=== PATIENT | male | born 1955 | race Caucasian/White ===

== ENCOUNTER 2017-07-25 11:22 | Inpatient (IN) | payer SELFPAY ==
[2017-07-25] VITALS (10 sets, daily range): BP systolic 132–259; BP diastolic 62–151; PULSE 77–106; RESP 15–26; TEMP 98.2–98.6; O2SAT 95–98
[~2017-07-25] VITALS: Ht 195.6 cm; Wt 85.8 kg
--- NOTE | 2017-07-25 11:40 | PD ---
HPI . Left-sided weakness Chief Complaint: Neuro Symptoms/ Deficits Time Seen by Provider: 11:31 Travel History International Travel<30 days: No Contact w/Intl Traveler<30days: No Traveled to known affect area: No History of Present Illness HPI Patient presents with a chief complaint of left-sided weakness. Onset was noted on awakening yesterday. Symptoms have persisted causing him to present us today for evaluation. No modifying factors. He complains of a mild frontal headache. Otherwise, he has no other associated symptoms. Pertinent medical history is hypertension. He has been off of meds for a couple of years. [facility]. [facility] Social History Tobacco Use: No Allergies-Medications (Allergen,Severity, Reaction): Coded Allergies: No Known Allergies (Unverified , 07/25/17) Reported Meds & Prescriptions Reported Meds & Active Scripts Active No Active Prescriptions or Reported Medications Review of Systems Except as stated in HPI: all other systems reviewed are Neg General / Constitutional: No: Fever, Chills Eyes: No: Blurred Vision HENT: Positive: Headaches Cardiovascular: No: Chest Pain or Discomfort Respiratory: No: Shortness of Breath Gastrointestinal: No: Nausea, Vomiting Neurologic: Positive: Weakness, Focal Abnormalities, Headache, No: Syncope, Change in Mentation, Slurred Speech, Paresthesia Physical Exam Narrative GENERAL: Patient is awake and alert and in no acute distress. SKIN: warm/dry. HEAD: Atraumatic. Normocephalic. EYES: Pupils equal and round. No scleral icterus. No injection or drainage. ENT: No nasal bleeding or discharge. Mucous membranes pink and moist. NECK: Trachea midline. Full range of motion. CARDIOVASCULAR: Regular rate and rhythm. Heart sounds are normal. RESPIRATORY: No accessory muscle use. Clear to auscultation. Breath sounds equal bilaterally. GASTROINTESTINAL: Abdomen soft. Nontender. Nondistended. MUSCULOSKELETAL: No obvious deformities. No edema. NEUROLOGICAL: Awake and alert. No obvious cranial nerve deficits. Motor grossly within normal limits. Very subtle left pronator drift. He was also noted to be dragging his left leg a little. Normal speech. PSYCHIATRIC: Appropriate mood and affect; insight and judgment normal. Data Data Last Documented VS Vital Signs Date Time Temp Pulse Resp B/P (MAP) Pulse Ox O2 Delivery O2 Flow Rate FiO2 07/25/17 13:14 85 213/121 07/25/17 11:36 15 98 Nasal Cannula 2.00 07/25/17 11:26 98.6 Orders Orders Electrocardiogram (07/25/17 11:31) Prothrombin Time / Inr (Pt) (07/25/17 11:31) Act Partial Throm Time (Ptt) (07/25/17 11:31) Complete Blood Count With Diff (07/25/17 11:31) Comprehensive Metabolic Panel (07/25/17 11:31) Troponin I (07/25/17 11:31) Ct Brain W/O Iv Contrast(Rout) (07/25/17 11:31) Chest, Single Ap (07/25/17 11:31) Ecg Monitoring (07/25/17 11:31) Iv Access Insert/Monitor (07/25/17 11:31) Oximetry (07/25/17 11:31) Nicardipine Inj (Cardene Inj) (07/25/17 12:45) Consult Neurosurgery (07/25/17 ) (Hub Use Only)Inp Phy Cons/Ref (07/25/17 ) Admit Order (Ed Use Only) (07/25/17 13:28) Labs Laboratory Tests Test 07/25/17 11:30 White Blood Count 6.2 TH/MM3 Red Blood Count 4.68 MIL/MM3 Hemoglobin 16.1 GM/DL Hematocrit 47.4 % Mean Corpuscular Volume 101.2 FL Mean Corpuscular Hemoglobin 34.3 PG Mean Corpuscular Hemoglobin Concent 33.9 % Red Cell Distribution Width 13.2 % Platelet Count 188 TH/MM3 Mean Platelet Volume 8.0 FL Neutrophils (%) (Auto) 71.5 % Lymphocytes (%) (Auto) 18.4 % Monocytes (%) (Auto) 8.7 % Eosinophils (%) (Auto) 1.1 % Basophils (%) (Auto) 0.3 % Neutrophils # (Auto) 4.5 TH/MM3 Lymphocytes # (Auto) 1.1 TH/MM3 Monocytes # (Auto) 0.5 TH/MM3 Eosinophils # (Auto) 0.1 TH/MM3 Basophils # (Auto) 0.0 TH/MM3 CBC Comment DIFF FINAL Differential Comment Prothrombin Time 10.8 SEC Prothromb Time International Ratio 1.0 RATIO Activated Partial Thromboplast Time 27.3 SEC Blood Urea Nitrogen 20 MG/DL Creatinine 2.12 MG/DL Random Glucose 150 MG/DL Total Protein 8.2 GM/DL Albumin 3.5 GM/DL Calcium Level 8.8 MG/DL Alkaline Phosphatase 150 U/L Aspartate Amino Transf (AST/SGOT) 30 U/L Alanine Aminotransferase (ALT/SGPT) 27 U/L Total Bilirubin 0.5 MG/DL Sodium Level 140 MEQ/L Potassium Level 4.3 MEQ/L Chloride Level 105 MEQ/L Carbon Dioxide Level 27.6 MEQ/L Anion Gap 7 MEQ/L Estimat Glomerular Filtration Rate 32 ML/MIN Troponin I 0.10 NG/ML MDM Medical Decision Making Medical Screen Exam Complete: Yes Emergency Medical Condition: Yes Interpretation(s) EKG shows a sinus rhythm. Poor R-wave progression. Minimal ST segment elevation anteriorly. It does not meet STEMI criteria. Differential Diagnosis Differential diagnosis includes but is not limited to TIA, CVA, brain tumor, migraine, anxiety Narrative Course This patient presents with signs and symptoms compatible with stroke. He had the onset of symptoms more than 24 hours ago. Therefore, he does not meet criteria for a stroke alert. CBC & BMP Diagram 07/25/17 11:30 Total Protein 8.2, Albumin 3.5, Calcium Level 8.8, Alkaline Phosphatase 150 H, Aspartate Amino Transf (AST/SGOT) 30, Alanine Aminotransferase (ALT/SGPT) 27, Total Bilirubin 0.5 Last Impressions Chest X-Ray 07/25/17 1131 Signed Impressions: Service Date/Time: , July 25, 2017 11:48 - CONCLUSION: No acute disease. Edi Bo Jr., MD CT head: 1. 1 cm acute intraparenchymal hemorrhage involving the right thalamus and posterior limb of the internal capsule. 2. Chronic lacunar infarctions involving the left thalamus and donnie. Carding has been ordered. The patient's head of bed is elevated. Neurosurgery resulted. The findings have been discussed with the patient. He is aware that he needs to be admitted to the intensive care unit for blood pressure control. Critical Care Narrative Aggregate critical care time was 45 minutes. Time to perform other separately billable procedures was not included in the critical care time. My time did not include minutes spent treating any other patients simultaneously or on activities that did not directly contribute to the patient's treatment. The services I provided to this patient were to treat and/or prevent clinically significant deterioration due to strokelike symptoms, intracerebral hemorrhage I provided critical care services requiring my management, as noted below: Chart data review, documentation time, medication orders and management, vital sign assessments/reviewing monitor data, ordering and reviewing lab tests, ordering and interpreting/reviewing x-rays and diagnostic studies, care of the patient and discussion of the patient with the admitting physicians Physician Communication Physician Communication Dr. Barth, neurosurgery, has been consulted. There is nothing for him to do surgically. Dr. Evans, intensive care, has been consulted. Diagnosis Primary Impression: Hypertensive intracerebral hemorrhage Additional Impression: Uncontrolled hypertension Admitting Information Admitting Physician Requests: Admit Scripts No Active Prescriptions or Reported Meds Condition: Stable Val Duran MD Jul 25, 2017 11:40
[2017-07-25 12:03] LABS: AUTOMATED NEUTROPHIL # 4.5 TH/MM3 (1.8-7.7); BASOPHIL % 0.3 % (0.0-2.0); EOSINOPHIL # 0.1 TH/MM3 (0-0.4); EOSINOPHIL % 1.1 % (0.0-4.0); HEMATOCRIT 47.4 % (39.0-51.0); HEMO FLAGS DIFF FINAL; LYMPH % 18.4 % (9.0-44.0); LYMPHOCYTE # 1.1 TH/MM3 (1.0-4.8); MEAN CELL VOLUME 101.2 FL (80.0-100.0); MEAN CORPUSCULAR HEMOGLOBIN 34.3 PG (27.0-34.0); MEAN CORPUSCULAR HGB CONC 33.9 % (32.0-36.0); MONO % 8.7 % (0.0-8.0); NEUT % 71.5 % (16.0-70.0); PLATELET COUNT 188 TH/MM3 (150-450); RED BLOOD COUNT 4.68 MIL/MM3 (4.50-5.90); RED CELL DISTRIBUTION WIDTH 13.2 % (11.6-17.2); WHITE BLOOD COUNT 6.2 TH/MM3 (4.0-11.0)
[2017-07-25 12:07] LABS: APTT (PATIENT) 27.3 SEC (24.3-30.1); PROTHROMBIN TIME - PATIENT 10.8 SEC (9.8-11.6)
[2017-07-25 12:17] LABS: ALKALINE PHOSPHATASE 150 U/L (45-117); TOTAL BILIRUBIN ADULT 0.5 MG/DL (0.2-1.0)
[2017-07-25 12:19] LABS: ALT (GPT) 27 U/L (12-78); ANION GAP 7 MEQ/L (5-15); AST (GOT) 30 U/L (15-37); BICARBONATE 27.6 MEQ/L (21.0-32.0); BLOOD UREA NITROGEN 20 MG/DL (7-18); CHLORIDE 105 MEQ/L (98-107); GLOMERULAR FILTRATION RATE 32 ML/MIN (>89); POTASSIUM 4.3 MEQ/L (3.5-5.1); SODIUM (NA) 140 MEQ/L (136-145)
--- NOTE | 2017-07-25 12:32 | RADRPT ---
EXAM DATE/TIME: 07/25/2017 11:48 [facility] COMPARISON: No previous studies available for comparison. INDICATIONS : Shortness of breath. MEDICAL HISTORY : Hypertension. SURGICAL HISTORY : None. ENCOUNTER: Initial ACUITY: 1 week PAIN SCORE: 0/10 LOCATION: Bilateral chest FINDINGS: A single view of the chest demonstrates the lungs to be symmetrically aerated without evidence of mas s, infiltrate or effusion. The cardiomediastinal contours are unremarkable. Osseous structures are intact. CONCLUSION: No acute disease. Edi Bo Jr., MD on July 25, 2017 at 12:30 Board Certified Radiologist. This report was verified electronically.
[2017-07-25] MEDS ORDERED: niCARdipine INJ 25 MG in SODIUM CHLOR 0.9% 250 ML INJ 250 ML IV ONE (12:45)
--- NOTE | 2017-07-25 12:55 | RADRPT ---
EXAM DATE/TIME: 07/25/2017 12:35 [facility] COMPARISON: No previous studies available for comparison. INDICATIONS : Elevated blood pressure,headache,left side weakness RADIATION DOSE: 38.55 CTDIvol (mGy) MEDICAL HISTORY : Hypertension. SURGICAL HISTORY : None. ENCOUNTER: Initial ACUITY: 1 week PAIN SCALE: 3/10 LOCATION: cranial TECHNIQUE: Multiple contiguous axial images were obtained of the head. Using automated exposure control and adj ustment of the mA and/or kV according to patient size, radiation dose was kept as low as reasonably a chievable to obtain optimal diagnostic quality images. DICOM format image data is available electro nically for review and comparison. FINDINGS: There is a 1 cm intraparenchymal hemorrhage seen centered in the basal ganglia on the right. This is approaching the thalamus and posterior limb of the internal capsule. No significant mass effect. A sm all chronic lacunar infarction is seen involving the left thalamus. The remaining brain parenchyma sh ows normal attenuation with the exception of a lacunar solid infarction involving the donnie to the lef t of midline. Ventricles are normal in size. Chronic paranasal sinus disease involving the right ethm oid air cells. CONCLUSION: 1. 1 cm acute intraparenchymal hemorrhage involving the right thalamus and posterior limb of the inte rnal capsule. 2. Chronic lacunar infarctions involving the left thalamus and donnie. Edi Bo Jr., MD on July 25, 2017 at 12:51 Board Certified Radiologist. This report was verified electronically.
[2017-07-25] MEDS ORDERED: MISCELLANEOUS NURSING INFORMATION XX SCH (13:30)
[2017-07-25] MEDS ORDERED: CHLORHEXIDINE GLUCONATE 2 % 1 PACK (2 CLOTHS) TOP PRN (13:30)
[2017-07-25] MEDS ORDERED: LACTULOSE SYRUP 20 GM/30 ML CUP PO PRN (13:30)
[2017-07-25] MEDS ORDERED: SENNOSIDES 8.6 MG TAB PO PRN (13:30)
[2017-07-25] MEDS ORDERED: BISACODYL 10 MG SUPP RECTAL PRN (13:30)
[2017-07-25] MEDS ORDERED: MAGNESIUM HYDROXIDE SUSP 30 ML CUP PO PRN (13:30)
--- NOTE | 2017-07-25 13:38 | HHI.HP ---
HPI Service Critical Care Medicine Primary Care Physician No Primary Care Physician Admission Diagnosis hypertension intracerebral bleed Diagnosis: (1) ICH involving R Basal Ganglia and post limb of internal capsule Diagnosis: Principal (2) Hypertensive emergency Diagnosis: Principal (3) Acute kidney failure Diagnosis: Principal (4) Hyperglycemia Diagnosis: Principal (5) Mild troponin elevation Diagnosis: Principal (6) Hypertension Diagnosis: Secondary (7) Noncompliance Diagnosis: Secondary (8) Alcohol dependence Diagnosis: Secondary Chief Complaint: Intracranial hemorrhage Travel History International Travel<30 Days: No Contact w/Intl Traveler <30 Da: No Traveled to Known Affected Are: No History of Present Illness Patient is a 61-year-old male with past medical history significant for hypertension, noncompliance to medication, alcohol abuse who presented to the emergency department with complaints of left-sided weakness. He had symptoms from yesterday along with a frontal headache but decided to come only today as the symptoms persisted. Patient had been prescribed to take lisinopril but he had not been taking medication since last 2 years and does not check his blood pressure at home. No history of stroke in the past. Emergency CT of the head showed acute hemorrhage involving left thalamus and posterior limb of the internal capsule. Patient had no significant weakness other than slight left pronator drift. Neurosurgery Dr. Barth was contacted who recommended medical management and aggressive blood pressure control. Critical care medicine was consulted for admission and management. Patient had a BP of 259/151 on admission and was placed on Cardene infusion for hypertensive emergency I evaluated the patient in the emergency department. He is complaining of moderate left frontal headache. Systolic blood pressure remains in 200s and I have ordered to up titrate the Cardene, also added IV labetalol when necessary for SBP more than 160. We will target a blood pressure less than 140/90 due to acute intracranial hemorrhage. Abnormal labs include a creatinine of 2.12 and a glucose of 150, initial troponin was 0.10. EKG showed probably old septal infarct Review of Systems ROS Limitations: Other (as per HPI) Past Family Social History Allergies: Coded Allergies: No Known Allergies (Unverified , 07/25/17) Past Medical History Hypertension noncompliant to medication Alcohol abuse Tobacco use Past Surgical History No major surgeries Reported Medications Noncompliant with lisinopril Active Ordered Medications Currently on Cardene infusion Family History Mother was hypertensive Social History Drinks 5-6 beers daily and sometimes 12 pack Smokes one pack of cigarettes a day Physical Exam Vital Signs Vital Signs Date Time Temp Pulse Resp B/P (MAP) Pulse Ox O2 Delivery O2 Flow Rate FiO2 07/25/17 13:14 85 213/121 07/25/17 13:08 93 217/124 07/25/17 13:06 86 214/118 07/25/17 13:03 88 213/121 07/25/17 13:02 82 220/128 07/25/17 11:36 98 15 244/138 (173) 98 Nasal Cannula 2.00 07/25/17 11:36 15 98 Nasal Cannula 2.00 07/25/17 11:33 104 16 244/138 (173) 97 07/25/17 11:26 98.6 106 20 259/151 (187) 98 Room Air Physical Exam GENERAL: Patient is awake and alert and lying in the ER gurphuong complains of headache, some distress due to headache SKIN: warm/dry. HEAD: Atraumatic. Normocephalic. EYES: Pupils equal and round. No scleral icterus. No injection or drainage. ENT: No nasal bleeding or discharge. Mucous membranes moist NECK: Trachea midline. CARDIOVASCULAR: Regular rate and rhythm. Heart sounds are normal. Hypertensive on Cardene gtt RESPIRATORY: No accessory muscle use. Clear to auscultation. Breath sounds equal bilaterally. GASTROINTESTINAL: Abdomen soft. Nontender. Nondistended. MUSCULOSKELETAL: No obvious deformities. No edema. NEUROLOGICAL: Awake and alert. No obvious cranial nerve deficits. Motor grossly within normal limits. Subtle left pronator drift. Normal speech. Laboratory Laboratory Tests Test 07/25/17 11:30 White Blood Count 6.2 Red Blood Count 4.68 Hemoglobin 16.1 Hematocrit 47.4 Mean Corpuscular Volume 101.2 Mean Corpuscular Hemoglobin 34.3 Mean Corpuscular Hemoglobin Concent 33.9 Red Cell Distribution Width 13.2 Platelet Count 188 Mean Platelet Volume 8.0 Neutrophils (%) (Auto) 71.5 Lymphocytes (%) (Auto) 18.4 Monocytes (%) (Auto) 8.7 Eosinophils (%) (Auto) 1.1 Basophils (%) (Auto) 0.3 Neutrophils # (Auto) 4.5 Lymphocytes # (Auto) 1.1 Monocytes # (Auto) 0.5 Eosinophils # (Auto) 0.1 Basophils # (Auto) 0.0 CBC Comment DIFF FINAL Differential Comment Prothrombin Time 10.8 Prothromb Time International Ratio 1.0 Activated Partial Thromboplast Time 27.3 Blood Urea Nitrogen 20 Creatinine 2.12 Random Glucose 150 Total Protein 8.2 Albumin 3.5 Calcium Level 8.8 Alkaline Phosphatase 150 Aspartate Amino Transf (AST/SGOT) 30 Alanine Aminotransferase (ALT/SGPT) 27 Total Bilirubin 0.5 Sodium Level 140 Potassium Level 4.3 Chloride Level 105 Carbon Dioxide Level 27.6 Anion Gap 7 Estimat Glomerular Filtration Rate 32 Troponin I 0.10 Result Diagram: 07/25/17 1130 07/25/[address] Brain shows 1 cm hemorrhage involving left thalamus and posterior limb of internal capsule Caprini VTE Risk Assessment Caprini VTE Risk Assessment: Mod/High Risk (score >= 2) VTE Pharm Contraindication: Hemorrhage Caprini Risk Assessment Model Point Value = 1 Point Value = 2 Point Value = 3 Point Value = 5 Age 41-60 Minor surgery BMI > 25 kg/m2 Swollen legs Varicose veins or History of unexplained or recurrent spontaneous Oral contraceptives or hormone replacement Sepsis (< 1 month) Serious lung disease, including pneumonia (< 1 month) Abnormal pulmonary function Acute myocardial infarction Congestive heart failure (< 1 month) History of inflammatory bowel disease Medical patient at bed rest Age 61-74 Arthroscopic surgery Major open surgery (> 45 min) Laparoscopic surgery (> 45 min) Malignancy Confined to bed (> 72 hours) Immobilizing plaster cast Central venous access Age >= 75 History of VTE Family history of VTE Factor V Leiden Prothrombin [id number] Lupus anticoagulant Anticardiolipin antibodies Elevated serum homocysteine Heparin-induced thrombocytopenia Other congenital or acquired thrombophilia Stroke (< 1 month) Elective arthroplasty Hip, pelvis, or leg fracture Acute spinal cord injury (< 1 month) Prophylaxis Regimen Total Risk Factor Score Risk Level Prophylaxis Regimen 0-1 Low Early ambulation 2 Moderate Order ONE of the following: *Sequential Compression Device (SCD) *Heparin 5000 units SQ BID 3-4 Higher Order ONE of the following medications: *Heparin 5000 units SQ TID *Enoxaparin/Lovenox 40 mg SQ daily (WT < 150 kg, CrCl > 30 mL/min) *Enoxaparin/Lovenox 30 mg SQ daily (WT < 150 kg, CrCl > 10-29 mL/min) *Enoxaparin/Lovenox 30 mg SQ BID (WT < 150 kg, CrCl > 30 mL/min) AND/OR *Sequential Compression Device (SCD) 5 or more Highest Order ONE of the following medications: *Heparin 5000 units SQ TID (Preferred with Epidurals) *Enoxaparin/Lovenox 40 mg SQ daily (WT < 150 kg, CrCl > 30 mL/min) *Enoxaparin/Lovenox 30 mg SQ daily (WT < 150 kg, CrCl > 10-29 mL/min) *Enoxaparin/Lovenox 30 mg SQ BID (WT < 150 kg, CrCl > 30 mL/min) AND *Sequential Compression Device (SCD) Assessment and Plan Assessment and Plan NEURO: Acute left thalamic and internal capsule hemorrhage Hypertensive emergency Alcohol dependence - CT of the head shows 1 cm bleed left thalamic and posterior limb of internal capsule hemorrhage - Neurosurgery Dr. Barth consulted, conservative management - Cardene infusion to keep blood pressure less than 140/90 - Watch for Alcohol withdrawal, use Ativan when necessary - Supplement and multivitamin thiamine - F/U Ct head in am, check B12, Folate, TSH - HOB elevation to 45 - PT/OT/Speech RESP: - Nasal cannula oxygen - Tobacco cessation counselling CV: Hypertensive emergency History of hypertension with noncompliance Mild troponin elevation - Normal saline IV fluids, check 2d echo, monitor serial cardiac enzymes - Cardizem infusion to keep blood pressure less than 140/90, use labetalol IV when necessary - Start Norvasc 5 mg daily and metoprolol 25 mg by mouth every 8 hours GI: - Speech and swallow eval, diet per recommendation - Colace for bowel regimen : Acute kidney failure - Monitor renal function closely. Place Orellana catheter if patient agreeable - renal US. Nephrology consult if not improving ID: - Monitor for infection. No indication for antibiotics at this time HEME: - Monitor CBC, CMP, coags as needed ENDO: Hyperglycemia - Check hemoglobin A1c - SSI if needed PROPH: - Bilateral lower extremity SCDs/MACK. Chemical DVT prophylaxis contraindicated due to intracranial hemorrhage - IV Protonix for GI prophylaxis LINES: - Utilize peripheral IVs, central line if needed CC time 35 min Code Status Full code Problem Qualifiers (1) Alcohol dependence: Daniel Evans MD Jul 25, 2017 13:38
[2017-07-25] MEDS ORDERED: ACETAMINOPHEN 325 MG TAB PO PRN (14:45)
--- NOTE | 2017-07-25 14:49 | RADRPT ---
EXAM DATE/TIME: 07/25/2017 13:53 [facility] COMPARISON: No previous studies available for comparison. INDICATIONS : Increased lab values. MEDICAL HISTORY : Hypertension. Alcohol use. Substance use. SURGICAL HISTORY : None. ENCOUNTER: Initial ACUITY: 1 day PAIN SCORE: 12/04 LOCATION: Bilateral flank MEASUREMENTS: RIGHT KIDNEY: 10.3 x 5.3 x 5.6 cm LEFT KIDNEY: 11.1 x 4.2 x 6.6 cm FINDINGS: RIGHT KIDNEY: There is a 1 cm non-shadowing stone involving the lower pole. This is echogenic and with shadowing. T here is a vague area of decreased echogenicity involving the medial mid cortex. No discrete mass is a ppreciated. No hydronephrosis seen. LEFT KIDNEY: There is a 4.1 cm cyst involving the midpole. No hydronephrosis. BLADDER: Within normal limits given the degree of distension. CONCLUSION: 1. 1 cm nonobstructing right renal stone. 2. Vague area of differing echogenicity involving the medial midpole of the right kidney. I do not se e a discrete mass. This area should be followed up. This can be done preferably with an MRI with and without contrast but if the patient's renal status will not tolerate this a short term followup ultra sound can be performed. Edi Bo Jr., MD on July 25, 2017 at 14:44 Board Certified Radiologist. This report was verified electronically.
[2017-07-25] MEDS ORDERED: MULTIVITAMIN INJ 10 ML, THIAMINE INJ 100 MG, FOLIC ACID INJ 1 MG in SODIUM CHLORID 0.9%... IV ONE (16:00)
[2017-07-25] MEDS: ACETAMINOPHEN 325 MG TAB PO PRN ×2 (16:42→21:03)
[2017-07-25] MEDS: METOPROLOL TARTRATE 25 MG TAB PO SCH ×2 (16:42→21:02)
[2017-07-25] MEDS: niCARdipine INJ 25 MG in SODIUM CHLOR 0.9% 250 ML INJ 250 ML IV PRN ×2 (16:57→20:54)
[2017-07-25] MEDS: SODIUM CHLOR 0.9% 1000 ML INJ 1,000 ML IV SCH (18:13)
[2017-07-25] MEDS: DOCUSATE SODIUM 50 MG/SENNA 8.6 MG TAB PO SCH (20:22)
[2017-07-25] MEDS: ZOLPIDEM TARTRATE 10 MG TAB PO PRN (21:02)
--- NOTE | 2017-07-25 22:34 | MB ---
cc: BHARAT PEREZ DATE OF CONSULTATION 07/25/17 REASON FOR CONSULTATION Right thalamic bleed HISTORY OF PRESENT ILLNESS This is a 61-year-old gentleman who had acute onset of left-sided weakness and numbness initially around the arm and also leg yesterday morning. He also is suffering from an upper respiratory infection and related to me that he felt that this could be side effects from his cold and, therefore, did not think he needed medical attention. His symptoms persisted today. Therefore, he decided to come to the emergency room. He was very hypertensive on presentation with blood pressure initially noted to be 159/151. He was started on a Cardene drip to regulate his malignant hypertension and a CT scan of the head obtained reveals a 1 cm right thalamic hemorrhage. There is no intraventricular extension or hydrocephalus. He also has small vessel ischemic changes with coronary infarcts involving the left thalamus and donine. The patient relates that he has a history of hypertension but was unable to get care at the [facility], although he is a and, therefore, has not been taking any medications. He relates that since his admission and regulation of his hypertension his left-sided weakness and numbness is improving. PAST MEDICAL HISTORY Hypertension. MEDICATIONS None ALLERGIES No known drug allergies. 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 He is single. He admits to drinking six beers a day and smoking a pack of cigarettes a day. REVIEW OF SYSTEMS Mild headache. Denies any double vision or blurred vision. Denies any nausea or vomiting, has some mild left arm and leg weakness, mild numbness and incoordination and unsteadiness. Denies any chest pain or shortness of breath. Denies any abdominal pain and no fevers or chills. No recent weight gain or weight loss. No history of easy bleeding or bruising. No incontinence. LABORATORY FINDINGS Sodium 140, potassium 4.3, BUN 20, creatinine 2.12, glucose 150. White blood cell count 6.2, hemoglobin 16.1, platelet count 188, PT 10.8, INR 1.0, PTT 27.3. PHYSICAL EXAMINATION VITAL SIGNS: Temperature 98.6, pulse is 98, respiratory rate 15, blood pressure is 155/86 on Cardene drip. HEAD: Normocephalic, atraumatic NECK: Supple. CHEST: Clear bilaterally HEART: Mild tachycardia, normal S1, S2 ABDOMEN: Soft, nontender. EXTREMITIES: No cyanosis or edema. NEUROLOGIC: He is awake, alert. He is oriented x3. Pupils equal, reactive. Extraocular movements are intact. Face is symmetric. Tongue is midline. Right-sided strength is 5/5. On the left side he has 4/5 strength in upper and lower extremities. Negative Babinski. Appreciates light touch sensation bilaterally in upper and lower extremities. Speech is fluent. IMPRESSION 1. Small right thalamic hypertensive bleed. 2. Unregulated malignant hypertension 3. History of alcohol abuse. PLAN The patient will be monitored closely in the intensive care unit and hypertension regulated with Cardene drip and subsequently switched over to p.o. medications. Sequential compression devices for DVT prophylaxis as chemical DVT prophylaxis contraindicated given the intracranial hemorrhage. His diet and activity status can be increased as tolerated along with physical and occupational therapy involvement. At this point, no neurosurgical intervention is anticipated. MD DOYLE Graff/ /5:33 PM /10:21 PM
[2017-07-25] MEDS: LORazepam 2 MG/ML VIAL IV PUSH PRN (23:27)
[2017-07-26] VITALS (13 sets, daily range): BP systolic 142–156; BP diastolic 70–81; PULSE 77–98; RESP 18–27; TEMP 97.9–98.2; O2SAT 90–95
[2017-07-26] MEDS: niCARdipine INJ 25 MG in SODIUM CHLOR 0.9% 250 ML INJ 250 ML IV PRN ×3 (00:46→04:43)
[2017-07-26 01:40] LABS: CREATINE KINASE 93 U/L (39-308)
[2017-07-26 02:11] LABS: AUTOMATED NEUTROPHIL # 4.5 TH/MM3 (1.8-7.7); BASOPHIL % 0.7 % (0.0-2.0); EOSINOPHIL # 0.2 TH/MM3 (0-0.4); EOSINOPHIL % 2.7 % (0.0-4.0); HEMO FLAGS DIFF FINAL; LYMPH % 15.1 % (9.0-44.0); LYMPHOCYTE # 0.9 TH/MM3 (1.0-4.8); MEAN CELL VOLUME 100.9 FL (80.0-100.0); MEAN CORPUSCULAR HEMOGLOBIN 33.6 PG (27.0-34.0); MEAN CORPUSCULAR HGB CONC 33.3 % (32.0-36.0); MONO % 7.2 % (0.0-8.0); NEUT % 74.3 % (16.0-70.0); PLATELET COUNT 165 TH/MM3 (150-450); RED BLOOD COUNT 4.46 MIL/MM3 (4.50-5.90); RED CELL DISTRIBUTION WIDTH 13.4 % (11.6-17.2); WHITE BLOOD COUNT 6.1 TH/MM3 (4.0-11.0)
[2017-07-26 02:24] LABS: ALKALINE PHOSPHATASE 144 U/L (45-117); ALT (GPT) 25 U/L (12-78); ANION GAP 7 MEQ/L (5-15); AST (GOT) 27 U/L (15-37); BICARBONATE 28.5 MEQ/L (21.0-32.0); BLOOD UREA NITROGEN 17 MG/DL (7-18); CHLORIDE 107 MEQ/L (98-107); CREATINE KINASE 86 U/L (39-308); GLOMERULAR FILTRATION RATE 44 ML/MIN (>89); POTASSIUM 4.1 MEQ/L (3.5-5.1); SODIUM (NA) 142 MEQ/L (136-145); TOTAL BILIRUBIN ADULT 0.5 MG/DL (0.2-1.0)
[2017-07-26] MEDS: BENZONATATE 100 MG CAP PO PRN ×2 (03:53→22:38)
[2017-07-26] MEDS: LORazepam 2 MG/ML VIAL IV PUSH PRN ×3 (03:53→17:30)
[2017-07-26] MEDS: CHLORHEXIDINE GLUCONATE 2 % 1 PACK (2 CLOTHS) TOP SCH (04:50)
--- NOTE | 2017-07-26 06:09 | RADRPT ---
EXAM DATE/TIME: 07/26/2017 05:58 [place] COMPARISON: CT BRAIN W/O CONTRAST, July 25, 2017, 12:35. INDICATIONS : Follow up hemorrhage. RADIATION DOSE: 69.11 CTDIvol (mGy) ; Tabletop CT Head MEDICAL HISTORY : Hypertension. SURGICAL HISTORY : None. ENCOUNTER: Subsequent ACUITY: 1 day PAIN SCALE: 0/10 LOCATION: cranial TECHNIQUE: Multiple contiguous axial images were obtained of the head. Using automated exposure control and adj ustment of the mA and/or kV according to patient size, radiation dose was kept as low as reasonably a chievable to obtain optimal diagnostic quality images. DICOM format image data is available electro nically for review and comparison. FINDINGS: The prior examination demonstrated acute right basal ganglia hemorrhage measuring 14 x 10 mm the surr ounding vasogenic edema. The current examination demonstrates no significant change. Ventricles are n ormal in size. There is no midline shift or herniation. No new blood products are identified. There i s a stable area of low density in the left thalamus. CONCLUSION: Stable head CT with unchanged acute right basal ganglia blood products. Nathan Knowles MD on July 26, 2017 at 6:05 Board Certified Radiologist. This report was verified electronically.
[2017-07-26] MEDS: METOPROLOL TARTRATE 25 MG TAB PO SCH ×3 (06:13→21:11)
[2017-07-26] MEDS: SODIUM CHLOR 0.9% 1000 ML INJ 1,000 ML IV SCH (06:14)
[2017-07-26] MEDS ORDERED: niCARdipine INJ 50 MG in SODIUM CHLOR 0.9% 250 ML INJ 230 ML IV PRN (07:00)
[2017-07-26] MEDS: PANTOPRAZOLE SODIUM 40 MG VIAL IV SCH (08:48)
[2017-07-26] MEDS: DOCUSATE SODIUM 50 MG/SENNA 8.6 MG TAB PO SCH ×2 (08:49→21:00)
[2017-07-26] MEDS: ACETAMINOPHEN 325 MG TAB PO PRN ×2 (08:49→17:30)
[2017-07-26] MEDS ORDERED: amLODIPine BESYLATE 5 MG TAB PO SCH (09:00)
--- NOTE | 2017-07-26 09:08 | HHI.CCPN ---
Subjective Remarks/Hospital Course Patient is a 61-year-old male with past medical history significant for hypertension, noncompliance to medication, alcohol abuse who presented to the emergency department with complaints of left-sided weakness. He had symptoms from yesterday along with a frontal headache but decided to come only today as the symptoms persisted. Patient had been prescribed to take lisinopril but he had not been taking medication since last 2 years and does not check his blood pressure at home. No history of stroke in the past. Emergency CT of the head showed acute hemorrhage involving right thalamus and posterior limb of the internal capsule. Patient had no significant weakness other than slight left pronator drift. Neurosurgery Dr. Barth was contacted who recommended medical management and aggressive blood pressure control. Critical care medicine was consulted for admission and management. Patient had a BP of 259/151 on admission and was placed on Cardene infusion for hypertensive emergency I evaluated the patient in the emergency department. He is complaining of moderate left frontal headache. Systolic blood pressure remains in 200s and I have ordered to up titrate the Cardene, also added IV labetalol when necessary for SBP more than 160. We will target a blood pressure less than 140/90 due to acute intracranial hemorrhage. Abnormal labs include a creatinine of 2.12 and a glucose of 150, initial troponin was 0.10. EKG showed probably old septal infarct SUBJ 07/26: Patient remains on Cardene at [address] of the head stable today. Headache subjectively improved. We'll increase Norvasc to 10 mg and metoprolol 50 every 8 hours. Creatinine today improved to 1.6 Objective Vital Signs Date Time Temp Pulse Resp B/P (MAP) Pulse Ox O2 Delivery O2 Flow Rate FiO2 07/26/17 07:31 79 154/76 07/26/17 07:22 95 Nasal Cannula 2.00 07/26/17 04:00 26 07/25/17 20:00 98.2 Intake and Output 07/26/17 07/26/17 07/26/17 07:59 15:59 23:59 Intake Total 1828 ml Balance 1828 ml Result Diagram: 07/26/17 0147 07/26/17[address] Imaging [address] Brain shows 1 cm hemorrhage involving left thalamus and posterior limb of internal capsule Objective Remarks GENERAL: Patient is awake and alert and ditting up in bed. SKIN: warm/dry. HEAD: Atraumatic. Normocephalic. EYES: Pupils equal and round. No scleral icterus. No injection or drainage. ENT: No nasal bleeding or discharge. Mucous membranes moist NECK: Trachea midline. CARDIOVASCULAR: Regular rate and rhythm. Heart sounds are normal. On Cardene gtt RESPIRATORY: No accessory muscle use. Clear to auscultation. Breath sounds equal bilaterally. GASTROINTESTINAL: Abdomen soft. Nontender. Nondistended. MUSCULOSKELETAL: No obvious deformities. No edema. NEUROLOGICAL: Awake and alert. No obvious cranial nerve deficits. Motor grossly within normal limits. Normal speech. Urinary Catheter: Yes Assessment to: Continue A/P Assessment and Plan NEURO: Acute right thalamic and internal capsule hemorrhage Hypertensive emergency Alcohol dependence - CT of the head 07/25 1 cm bleed right thalamic and posterior limb of internal capsule hemorrhage - Repeat CT head 07/26 stable bleed - Neurosurgery Dr. Barth consulted, conservative management - Cardene infusion to keep blood pressure less than 150/90 - Watch for Alcohol withdrawal, use Ativan when necessary - Supplement and multivitamin thiamine - B12 borderline low, Normal Folate, TSH - HOB elevation to 45 - PT/OT/Speech RESP: - Nasal cannula oxygen - Tobacco cessation counselling CV: Hypertensive emergency History of hypertension with noncompliance Mild troponin elevation - Normal saline IV fluids reduce to 40 ML per hour, 2d echo, monitor serial cardiac enzymes - Cardizem infusion to keep blood pressure less than 150/90, use labetalol IV, Hydralazine when necessary - Increase Norvasc to 10 mg daily and metoprolol 50 mg by mouth every 8 hours GI: - Heart healthy, low Na diet - Colace for bowel regimen : Acute kidney failure - Monitor renal function closely. Creat improving ID: - Monitor for infection. No indication for antibiotics at this time HEME: - Monitor CBC, CMP, coags as needed ENDO: Hyperglycemia -Hemoglobin A1c pending - SSI if needed PROPH: - Bilateral lower extremity SCDs/MACK. Chemical DVT prophylaxis contraindicated due to intracranial hemorrhage - IV Protonix for GI prophylaxis LINES: - Utilize peripheral IVs, central line if needed Level 3. Continue ICU care due to uncontrolled hypertension and Cardene gtt Daniel Evans MD Jul 26, 2017 09:08
[2017-07-26] MEDS ORDERED: amLODIPine BESYLATE 5 MG TAB PO ONE (10:00)
[2017-07-26] MEDS ORDERED: ZOLPIDEM TARTRATE 10 MG TAB PO PRN (10:00)
--- NOTE | 2017-07-26 10:42 | HHI.NSPN ---
(David Varela) History Chief Complaint: weakness in left hand. Right Thalamic ICH. (David Varela) Interval History This is a 61-year-old gentleman who had acute onset of left-sided weakness and numbness initially around the arm and also leg yesterday morning. He also is suffering from an upper respiratory infection and related to me that he felt that this could be side effects from his cold and, therefore, did not think he needed medical attention. His symptoms persisted today. Therefore, he decided to come to the emergency room. He was very hypertensive on presentation with blood pressure initially noted to be 159/151. He was started on a Cardene drip to regulate his malignant hypertension and a CT scan of the head obtained reveals a 1 cm right thalamic hemorrhage. There is no intraventricular extension or hydrocephalus. He also has small vessel ischemic changes with coronary infarcts involving the left thalamus and donnie. The patient relates that he has a history of hypertension but was unable to get care at the [facility], although he is a and, therefore, has not been taking any medications. He relates that since his admission and regulation of his hypertension his left-sided weakness and numbness is improving. 07/26/17: Pt awakens to voice. Denies headache, nausea or vomiting. Pt has Weakness and incoordination in left hand. (David Varela) Review of Systems General: Negative for: fever, chills, insomnia Respiratory: Negative for: shortness of breath, cough, sputum Cardiovascular: Negative for: chest pain Gastrointestinal: Negative for: nausea, vomitting, diarrhea, constipation ( David Varela) Exam Results Vital Signs Date Time Temp Pulse Resp B/P (MAP) Pulse Ox O2 Delivery O2 Flow Rate FiO2 07/26/17 07:31 79 154/76 07/26/17 07:22 95 Nasal Cannula 2.00 07/26/17 04:00 26 07/25/17 20:00 98.2 Intake and Output 07/26/17 07/26/17 07/27/17 08:00 16:00 00:00 Intake Total 2078 ml Balance 2078 ml (David Varela) Physical Examination Resp: CTA bilaterally Heart: NSR no murmurs. Pt on Cardene drip. Abd: Soft positive bs Skin: No cyanosis or erythema Muscle: Moves all 4 extremities, Mild left hemiparesis. Neuro: Pt awake and alert. Pupils 3mm bilaterally, reactive bilaterally. Follows commands well. Speech clear, answers questions appropriately. (David Varela) Lab, Micro, Other Results Last Impressions Head CT 07/26/17 0600 Signed Impressions: Service Date/Time: Wednesday, July 26, 2017 05:58 - CONCLUSION: Stable head CT with unchanged acute right basal ganglia blood products. Nathan Knowles MD Chest X-Ray 07/25/17 1131 Signed Impressions: Service Date/Time: June 11:48 - CONCLUSION: No acute disease. Edi Bo Jr., MD Renal Ultrasound 07/25/17 0000 Signed Impressions: Service Date/Time: June 13:53 - CONCLUSION: 1. 1 cm nonobstructing right renal stone. 2. Vague area of differing echogenicity involving the medial midpole of the right kidney. I do not see a discrete mass. This area should be followed up. This can be done preferably with an MRI with and without contrast but if the patient's renal status will not tolerate this a short term followup ultrasound can be performed. Edi Bo Jr., MD Laboratory Tests Test 07/25/17 11:30 07/25/17 16:15 07/25/17 20:40 07/26/17 01:47 White Blood Count 6.2 TH/MM3 6.1 TH/MM3 Red Blood Count 4.68 MIL/MM3 4.46 MIL/MM3 Hemoglobin 16.1 GM/DL 15.0 GM/DL Hematocrit 47.4 % 45.0 % Mean Corpuscular Volume 101.2 FL 100.9 FL Mean Corpuscular Hemoglobin 34.3 PG 33.6 PG Mean Corpuscular Hemoglobin Concent 33.9 % 33.3 % Red Cell Distribution Width 13.2 % 13.4 % Platelet Count 188 TH/MM3 165 TH/MM3 Mean Platelet Volume 8.0 FL 7.6 FL Neutrophils (%) (Auto) 71.5 % 74.3 % Lymphocytes (%) (Auto) 18.4 % 15.1 % Monocytes (%) (Auto) 8.7 % 7.2 % Eosinophils (%) (Auto) 1.1 % 2.7 % Basophils (%) (Auto) 0.3 % 0.7 % Neutrophils # (Auto) 4.5 TH/MM3 4.5 TH/MM3 Lymphocytes # (Auto) 1.1 TH/MM3 0.9 TH/MM3 Monocytes # (Auto) 0.5 TH/MM3 0.4 TH/MM3 Eosinophils # (Auto) 0.1 TH/MM3 0.2 TH/MM3 Basophils # (Auto) 0.0 TH/MM3 0.0 TH/MM3 CBC Comment DIFF FINAL DIFF FINAL Differential Comment Prothrombin Time 10.8 SEC Prothromb Time International Ratio 1.0 RATIO Activated Partial Thromboplast Time 27.3 SEC Blood Urea Nitrogen 20 MG/DL 17 MG/DL Creatinine 2.12 MG/DL 1.62 MG/DL Random Glucose 150 MG/DL 106 MG/DL Total Protein 8.2 GM/DL 7.3 GM/DL Albumin 3.5 GM/DL 3.1 GM/DL Calcium Level 8.8 MG/DL 8.0 MG/DL Alkaline Phosphatase 150 U/L 144 U/L Aspartate Amino Transf (AST/SGOT) 30 U/L 27 U/L Alanine Aminotransferase (ALT/SGPT) 27 U/L 25 U/L Total Bilirubin 0.5 MG/DL 0.5 MG/DL Sodium Level 140 MEQ/L 142 MEQ/L Potassium Level 4.3 MEQ/L 4.1 MEQ/L Chloride Level 105 MEQ/L 107 MEQ/L Carbon Dioxide Level 27.6 MEQ/L 28.5 MEQ/L Anion Gap 7 MEQ/L 7 MEQ/L Estimat Glomerular Filtration Rate 32 ML/MIN 44 ML/MIN Total Creatine Kinase 93 U/L 72 U/L 86 U/L Troponin I 0.10 NG/ML 0.13 NG/ML 0.12 NG/ML Vitamin B12 Level 367 PG/ML Folate 12.0 NG/ML Thyroid Stimulating Hormone 3rd Gen 1.170 uIU/ML Nasal Screen MRSA (PCR) MRSA NOT DETECTED Magnesium Level 2.0 MG/DL 07/26/17 07/26/17 07/27/17 15:00 23:00 07:00 Intake Total 328 ml Balance 328 ml IV Total 328 ml (David Varela) Medical Decision Making Impression and Plan A: 61 y/o M with a small right thalamic hypertensive bleed. Follow up CT head stable. 2. Unregulated malignant hypertension 3. History of alcohol abuse. PLAN Continue with Cardene drip and blood pressure control Continue to monitor neuro exam Continue with rehab efforts. (David Varela) Attending Statement The exam, history, and the medical decision-making described in the above note were completed with the assistance of the mid-level provider. I reviewed and agree with the findings presented. I attest that I had a [id number] encounter with the patient on the same day, and personally performed and documented my assessment and findings in the medical record. Stable neurologic examination and follow-up CT scan head. Hypertension control but requiring Cardene drip along with by mouth meds. Stable for discharge from a neurosurgery standpoint once hypertension regulated. We'll see when necessary at this point. (Jonathon Barth MD) David Varela Jul 26, 2017 10:42 Jonathon Barth MD Jul 26, 2017 12:31
[2017-07-26] MEDS ORDERED: CYANOCOBALAMIN 1000 MCG/ML VIAL IM ONE (11:00)
[2017-07-26] MEDS: niCARdipine INJ 50 MG in SODIUM CHLOR 0.9% 250 ML INJ 230 ML IV PRN ×3 (11:03→20:22)
[2017-07-26] MEDS: MULTIVITAMIN INJ 10 ML, THIAMINE INJ 100 MG, FOLIC ACID INJ 1 MG in SODIUM CHLORID 0.9%... IV SCH (12:02)
[2017-07-26 12:15] LABS: HEMOGLOBIN A1b 1.6 %; HEMOGLOBIN LA1C 2.1 %
--- NOTE | 2017-07-26 12:36 | EKG ---
Date Performed: 07/25/2017 Time Performed: 11:37:02 PTAGE: 61 years EKG: Sinus tachycardia Poor R-wave progression, most likely lead placement, cannot exclude age i ndeterminate anteroseptal infarct ABNORMAL ECG NO PREVIOUS TRACING DOCTOR: Jeff Schilling Interpretating Date/Time 07/26/2017 12:35:23
--- NOTE | 2017-07-26 15:45 | ECHRPT ---
Indication: htn h dis CONCLUSIONS The left ventricular systolic function is normal with an estimated ejection fraction in the range of 55-60%. Normal left ventricular size. Mild concentric left ventricular hypertrophy. Mild mitral valve regurgitation. There is mild tricuspid valve regurgitation. The pulmonary valve is not well visualized. BP: / HR: Rhythm: MEASUREMENTS (Male / Female) Normal Values Technical Quality:Good 2D ECHO LV Diastolic Diameter PLAX 4.7 cm 4.2 - 5.9 / 3.9 - 5.3 cm LV Systolic Diameter PLAX 3.5 cm IVS Diastolic Thickness 1.3 cm 0.6 - 1.0 / 0.6 - 0.9 cm LVPW Diastolic Thickness 1.7 cm 0.6 - 1.0 / 0.6 - 0.9 cm LV Relative Wall Thickness 0.6 RV Internal Dim ED PLAX 3.1 cm DOPPLER Mitral E Point Velocity 102.0 cm/s Mitral A Point Velocity 87.4 cm/s Mitral E to A Ratio 1.2 LV E' Lateral Velocity 10.0 cm/s Mitral E to LV E' Lateral Ratio 10.2 LV E' Septal Velocity 6.9 cm/s Mitral E to LV E' Septal Ratio 14.7 FINDINGS LEFT VENTRICLE The left ventricular systolic function is normal with an estimated ejection fraction in the range of 55-60%. Normal left ventricular size. Mild concentric left ventricular hypertrophy. RIGHT VENTRICLE Normal right ventricular size and systolic function. LEFT ATRIUM The left atrial size is normal. RIGHT ATRIUM The right atrial size is normal. ATRIAL SEPTUM Normal atrial septal thickness without atrial level shunting by limited color doppler interrogation. AORTA The aortic root and proximal ascending aorta are normal in size on limited imaging. MITRAL VALVE Structurally normal mitral valve. Mild mitral valve regurgitation. AORTIC VALVE Trileaflet aortic valve. No aortic valve stenosis or regurgitation. TRICUSPID VALVE Structurally normal tricuspid valve. There is mild tricuspid valve regurgitation. PULMONARY VALVE The pulmonary valve is not well visualized. VESSELS The inferior vena cava is normal in size. PERICARDIUM No pericardial effusion. Dionne Huynh MD, FACC (Electronically Signed) Final Date:26 July 2017 15:44
[2017-07-26] MEDS: ZOLPIDEM TARTRATE 10 MG TAB PO PRN (22:38)
[2017-07-27] VITALS (15 sets, daily range): BP systolic 127–160; BP diastolic 44–88; PULSE 65–90; RESP 21–27; TEMP 97.8–98.3; O2SAT 92–97
[2017-07-27] MEDS: RESP: ALBUTEROL 2.5 MG/IPRATROPIUM 0.5 MG NEB (PRN) INH ×4 (00:46→20:17)
[2017-07-27] MEDS: niCARdipine INJ 50 MG in SODIUM CHLOR 0.9% 250 ML INJ 230 ML IV PRN ×3 (01:23→21:13)
[2017-07-27] MEDS: SODIUM CHLOR 0.9% 1000 ML INJ 1,000 ML IV SCH ×2 (04:26→12:24)
[2017-07-27] MEDS: CHLORHEXIDINE GLUCONATE 2 % 1 PACK (2 CLOTHS) TOP SCH (04:26)
[2017-07-27] MEDS: ACETAMINOPHEN 325 MG TAB PO PRN ×4 (04:27→20:10)
[2017-07-27 05:45] LABS: ALT (GPT) 22 U/L (12-78); ANION GAP 8 MEQ/L (5-15); AST (GOT) 22 U/L (15-37); BICARBONATE 26.2 MEQ/L (21.0-32.0); BLOOD UREA NITROGEN 16 MG/DL (7-18); CHLORIDE 105 MEQ/L (98-107); GLOMERULAR FILTRATION RATE 50 ML/MIN (>89); SODIUM (NA) 139 MEQ/L (136-145)
[2017-07-27 05:48] LABS: ALKALINE PHOSPHATASE 126 U/L (45-117); TOTAL BILIRUBIN ADULT 0.5 MG/DL (0.2-1.0)
[2017-07-27] MEDS: METOPROLOL TARTRATE 25 MG TAB PO SCH ×3 (06:10→21:09)
--- NOTE | 2017-07-27 07:30 | HHI.CCPN ---
Subjective Remarks/Hospital Course Patient is a 61-year-old male with past medical history significant for hypertension, noncompliance to medication, alcohol abuse who presented to the emergency department with complaints of left-sided weakness. He had symptoms from yesterday along with a frontal headache but decided to come only today as the symptoms persisted. Patient had been prescribed to take lisinopril but he had not been taking medication since last 2 years and does not check his blood pressure at home. No history of stroke in the past. Emergency CT of the head showed acute hemorrhage involving right thalamus and posterior limb of the internal capsule. Patient had no significant weakness other than slight left pronator drift. Neurosurgery Dr. Barth was contacted who recommended medical management and aggressive blood pressure control. Critical care medicine was consulted for admission and management. Patient had a BP of 259/151 on admission and was placed on Cardene infusion for hypertensive emergency I evaluated the patient in the emergency department. He is complaining of moderate left frontal headache. Systolic blood pressure remains in 200s and I have ordered to up titrate the Cardene, also added IV labetalol when necessary for SBP more than 160. We will target a blood pressure less than 140/90 due to acute intracranial hemorrhage. Abnormal labs include a creatinine of 2.12 and a glucose of 150, initial troponin was 0.10. EKG showed probably old septal infarct SUBJ 07/26: Patient remains on Cardene at [address] of the head stable today. Headache subjectively improved. We'll increase Norvasc to 10 mg and metoprolol 50 every 8 hours. Creatinine today improved to 1.6 07/27: No headache. Alert, conversant. No weakness. Still requiring cardene infusion despite increased oral BP meds. Add lisinopril. Small basal ganglia bleed with no change in size but some edema. Neuro exam is grossly normal. Major issue is hypertension. Objective Vital Signs Date Time Temp Pulse Resp B/P (MAP) Pulse Ox O2 Delivery O2 Flow Rate FiO2 07/27/17 06:08 62 148/81 07/27/17 04:00 98.3 25 97 07/27/17 00:51 Nasal Cannula 6.00 Intake and Output 07/27/17 07/27/17 07/27/17 07:59 15:59 23:59 Intake Total 1250 ml Balance 1250 ml Result Diagram: 07/26/17 0147 07/27/[address] Brain shows 1 cm hemorrhage involving left thalamus and posterior limb of internal capsule Objective Remarks GENERAL: Patient is awake and alert SKIN: warm/dry. HEAD: Atraumatic. Normocephalic. EYES: Pupils equal and round. No scleral icterus. No injection or drainage. ENT: No nasal bleeding or discharge. Mucous membranes moist NECK: Trachea midline. Airway widely patent. CARDIOVASCULAR: Regular rate and rhythm. Heart sounds are normal. On Cardene gtt RESPIRATORY: No accessory muscle use. Clear to auscultation. Breath sounds equal bilaterally. No wheezes or crackles. GASTROINTESTINAL: Abdomen soft. Nontender. Nondistended. MUSCULOSKELETAL: No obvious deformities. No edema. NEUROLOGICAL: Awake and alert. No obvious cranial nerve deficits. Hand grasps 5 /5 bilateral. Motor grossly within normal limits. Normal, clear speech. Affect is a little flat. No tremors (? etoh withdrawal) A/P Assessment and Plan NEURO: Acute right thalamic and internal capsule hemorrhage Hypertensive emergency Alcohol dependence - CT of the head 07/25 1 cm bleed right thalamic and posterior limb of internal capsule hemorrhage - Repeat CT head 07/26 stable bleed - Neurosurgery Dr. Barth consulted, conservative management - Cardene infusion to keep blood pressure less than 150/90 - Watch for Alcohol withdrawal, use Ativan when necessary - Supplement and multivitamin thiamine - B12 borderline low, Normal Folate, TSH - HOB elevation to 45 - PT/OT/Speech RESP: - Nasal cannula oxygen - Tobacco cessation counselling CV: Hypertensive emergency History of hypertension with noncompliance Mild troponin elevation - Normal saline IV fluids reduce to 40 ML per hour, 2d echo, monitor serial cardiac enzymes - Cardene infusion to keep blood pressure less than 150/90, use labetalol IV, Hydralazine when necessary - Increase Norvasc to 10 mg daily and metoprolol 50 mg by mouth every 8 hours - Add lisinopril now that renal function improving. GI: - Heart healthy, low Na diet - Colace for bowel regimen : Acute kidney failure - Monitor renal function closely. Creat improving ID: - Monitor for infection. No indication for antibiotics at this time HEME: - Monitor CBC, CMP, coags as needed ENDO: Hyperglycemia -Hemoglobin A1c pending - SSI if needed PROPH: - Bilateral lower extremity SCDs/MACK. Chemical DVT prophylaxis contraindicated due to intracranial hemorrhage - IV Protonix for GI prophylaxis LINES: - Utilize peripheral IVs, central line if needed Overall plan: Continue ICU care due to uncontrolled hypertension and Cardene gtt. Mobilize. Viraj Welch MD Jul 27, 2017 07:30
[2017-07-27] MEDS: PANTOPRAZOLE SODIUM 40 MG VIAL IV SCH (08:43)
[2017-07-27] MEDS: BENZONATATE 100 MG CAP PO PRN ×2 (08:43→17:00)
[2017-07-27] MEDS: DOCUSATE SODIUM 50 MG/SENNA 8.6 MG TAB PO SCH ×2 (08:44→20:10)
[2017-07-27] MEDS: LISINOPRIL 5 MG TAB PO SCH ×2 (08:44→20:10)
[2017-07-27] MEDS: amLODIPine BESYLATE 5 MG TAB PO SCH (08:44)
[2017-07-27] MEDS: MULTIVITAMIN INJ 10 ML, THIAMINE INJ 100 MG, FOLIC ACID INJ 1 MG in SODIUM CHLORID 0.9%... IV SCH (10:06)
[2017-07-27] MEDS: hydrALAZINE HCL 20 MG/ML VIAL IV PUSH PRN ×2 (14:26→19:31)
[2017-07-27] MEDS: LABETALOL HCL 100 MG/20 ML VIAL IV PUSH PRN (17:34)
[2017-07-27] MEDS: ZOLPIDEM TARTRATE 10 MG TAB PO PRN (21:10)
[2017-07-28] VITALS (14 sets, daily range): BP systolic 125–155; BP diastolic 55–82; PULSE 62–79; RESP 14–33; TEMP 97.5–98.7; O2SAT 95–100
[2017-07-28] MEDS: BENZONATATE 100 MG CAP PO PRN ×3 (00:55→18:23)
[2017-07-28] MEDS: SODIUM CHLOR 0.9% 1000 ML INJ 1,000 ML IV SCH ×2 (01:03→07:00)
[2017-07-28] MEDS: ACETAMINOPHEN 325 MG TAB PO PRN ×4 (02:02→22:36)
[2017-07-28] MEDS: CHLORHEXIDINE GLUCONATE 2 % 1 PACK (2 CLOTHS) TOP SCH (04:00)
[2017-07-28 04:58] LABS: BICARBONATE 27.1 MEQ/L (21.0-32.0); POTASSIUM 3.7 MEQ/L (3.5-5.1)
[2017-07-28] MEDS: METOPROLOL TARTRATE 25 MG TAB PO SCH ×2 (05:22→12:44)
--- NOTE | 2017-07-28 07:47 | PD.TRANSFR ---
Transfer Summary Admission Date Jul 25, 2017 at 13:30 Transfer Date: Jul 29, 2017 Admitting Diagnosis hypertension intracerebral bleed Diagnoses: (1) ICH involving R Basal Ganglia and post limb of internal capsule Diagnosis: Principal (2) Hypertensive emergency Diagnosis: Principal (3) Acute kidney failure Diagnosis: Principal (4) Hyperglycemia Diagnosis: Principal (5) Mild troponin elevation Diagnosis: Principal (6) Noncompliance Diagnosis: Secondary (7) Alcohol dependence Diagnosis: Secondary Significant Findings Acute right basal ganglia bleed presented as headache. History of hypertension and noncompliance due to cost of copay for medications. Neuro exam is now grossly intact. Weaned off cardene infusion; now on lopressor, lisinopril, and norvasc. Transfer Summary/Subjective Neuro exam grossly intact. ETOH history but aside from some anxiety no nav withdrawal noted. Objective Vital Signs Date Time Temp Pulse Resp B/P (MAP) Pulse Ox O2 Delivery O2 Flow Rate FiO2 07/28/17 06:15 66 137/72 07/28/17 04:00 97.5 18 98 07/27/17 20:19 Nasal Cannula 3.00 Intake and Output 07/28/17 07/28/17 07/29/17 08:00 16:00 00:00 Intake Total 1951 ml Output Total 1000 ml Balance 951 ml Result Diagram: 07/26/17 0147 07/28/[address] Brain shows 1 cm hemorrhage involving left thalamus and posterior limb of internal capsule Objective Remarks GENERAL: Patient is awake and alert SKIN: warm/dry. HEAD: Atraumatic. Normocephalic. EYES: Pupils equal and round. No scleral icterus. No injection or drainage. ENT: No nasal bleeding or discharge. Mucous membranes moist NECK: Trachea midline. Airway widely patent. CARDIOVASCULAR: Regular rate and rhythm. Heart sounds are normal. On Cardene gtt RESPIRATORY: No accessory muscle use. Clear to auscultation. Breath sounds equal bilaterally. No wheezes or crackles. GASTROINTESTINAL: Abdomen soft. Nontender. Nondistended. MUSCULOSKELETAL: No obvious deformities. No edema. NEUROLOGICAL: Awake and alert. No obvious cranial nerve deficits. Hand grasps 5 /5 bilateral. Motor grossly within normal limits. Normal, clear speech. Affect is a little flat. No tremors (? etoh withdrawal) A/P Assessment and Plan NEURO: Acute right thalamic and internal capsule hemorrhage Hypertensive emergency Alcohol dependence - CT of the head 07/25 1 cm bleed right thalamic and posterior limb of internal capsule hemorrhage - Repeat CT head 07/26 stable bleed - Neurosurgery Dr. Barth consulted, conservative management - Cardene infusion to keep blood pressure less than 150/90 - Watch for Alcohol withdrawal, use Ativan when necessary - Supplement and multivitamin thiamine - B12 borderline low, Normal Folate, TSH - HOB elevation to 45 - PT/OT/Speech RESP: - Nasal cannula oxygen - Tobacco cessation counselling CV: Hypertensive emergency History of hypertension with noncompliance Mild troponin elevation - Normal saline IV fluids reduce to 40 ML per hour, 2d echo, monitor serial cardiac enzymes - Cardene infusion to keep blood pressure less than 150/90, use labetalol IV, Hydralazine when necessary - Increase Norvasc to 10 mg daily and metoprolol 50 mg by mouth every 8 hours - Add lisinopril now that renal function improving. GI: - Heart healthy, low Na diet - Colace for bowel regimen : Acute kidney failure - Monitor renal function closely. Creat improving ID: - Monitor for infection. No indication for antibiotics at this time HEME: - Monitor CBC, CMP, coags as needed ENDO: Hyperglycemia -Hemoglobin A1c pending - SSI if needed PROPH: - Bilateral lower extremity SCDs/MACK. Chemical DVT prophylaxis contraindicated due to intracranial hemorrhage - IV Protonix for GI prophylaxis LINES: - Utilize peripheral IVs, central line if needed Overall plan: Continue ICU care due to uncontrolled hypertension and Cardene gtt. Mobilize. Viraj Welch MD Jul 28, 2017 07:47
[2017-07-28] MEDS: DOCUSATE SODIUM 50 MG/SENNA 8.6 MG TAB PO SCH ×2 (08:21→20:06)
[2017-07-28] MEDS: amLODIPine BESYLATE 5 MG TAB PO SCH (08:21)
[2017-07-28] MEDS: LISINOPRIL 10 MG TAB PO SCH ×2 (08:21→20:06)
[2017-07-28] MEDS: MULTIVITAMIN INJ 10 ML, THIAMINE INJ 100 MG, FOLIC ACID INJ 1 MG in SODIUM CHLORID 0.9%... IV SCH (09:00)
[2017-07-28] MEDS: hydrALAZINE HCL 20 MG/ML VIAL IV PUSH PRN (10:52)
[2017-07-28] MEDS: LABETALOL HCL 100 MG/20 ML VIAL IV PUSH PRN ×2 (16:59→22:36)
[2017-07-28] MEDS: cloNIDine HCL 0.1 MG TAB PO PRN (18:23)
[2017-07-28] MEDS: guaiFENesin E.R. 600 MG TAB PO SCH (20:05)
[2017-07-28] MEDS: RESP: ALBUTEROL 2.5 MG/IPRATROPIUM 0.5 MG NEB (SCH) NEB (20:32)
[2017-07-28] MEDS ORDERED: FAMOTIDINE 20 MG TAB PO SCH (21:00)
[2017-07-28] MEDS: ZOLPIDEM TARTRATE 10 MG TAB PO PRN (23:54)
[2017-07-29] VITALS (8 sets, daily range): BP systolic 149–202; BP diastolic 78–103; PULSE 57–80; RESP 13–25; TEMP 97.5–98.2; O2SAT 95–99
[2017-07-29] MEDS: SODIUM CHLOR 0.9% 1000 ML INJ 1,000 ML IV SCH (01:03)
[2017-07-29] MEDS: METOPROLOL TARTRATE 25 MG TAB PO SCH (02:52)
[2017-07-29] MEDS: CHLORHEXIDINE GLUCONATE 2 % 1 PACK (2 CLOTHS) TOP SCH (04:00)
[2017-07-29] MEDS: cloNIDine HCL 0.1 MG TAB PO PRN ×2 (04:08→12:11)
[2017-07-29] MEDS: RESP: ALBUTEROL 2.5 MG/IPRATROPIUM 0.5 MG NEB (SCH) NEB ×4 (04:27→11:13)
[2017-07-29 07:34] LABS: BICARBONATE 24.6 MEQ/L (21.0-32.0)
[2017-07-29] MEDS: guaiFENesin E.R. 600 MG TAB PO SCH (08:29)
[2017-07-29] MEDS: LISINOPRIL 10 MG TAB PO SCH (08:30)
[2017-07-29] MEDS: DOCUSATE SODIUM 50 MG/SENNA 8.6 MG TAB PO SCH (08:30)
[2017-07-29] MEDS: amLODIPine BESYLATE 5 MG TAB PO SCH (08:30)
[2017-07-29] MEDS: ACETAMINOPHEN 325 MG TAB PO PRN (08:42)
[2017-07-29] MEDS: MULTIVITAMIN INJ 10 ML, THIAMINE INJ 100 MG, FOLIC ACID INJ 1 MG in SODIUM CHLORID 0.9%... IV SCH (09:00)
--- NOTE | 2017-07-29 10:15 | HHI.PR ---
Subjective Remarks Patient admitted due to Hypertension and Intracerebral bleed, found with Acute right basal ganglia bleed presented as headache. History of hypertension and noncompliance due to cost of copay for medications. Neuro exam is now grossly intact. Weaned off Cardene infusion; now on Lopressor, lisinopril, and Norvasc. ETOh History but no signs of withdrawal. CT brain showed 1 cm hemorrhage involving left thalamus and posterior limb of internal capsule. 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 The patient was seen yesterday BY web design specialist and did not consider the patient for transfer until today. seen in his bedroom with nurse will try to control his blood pressure now and try to discharge him home. he is anxious to go home. CC Prog Note/Transfer Summary Patient Name: Wilder Taylor Unit Number: [id number] Date of : 1955 Patient Status: Admitted Inpatient Attending Doctor: Devang Ko MD CC Transfer Summary Transfer Summary Admission Date Jul 25, 2017 at 13:30 Transfer Date: Jul 29, 2017 Admitting Diagnosis hypertension intracerebral bleed Diagnoses: (1) ICH involving R Basal Ganglia and post limb of internal capsule Diagnosis: Principal (2) Hypertensive emergency Diagnosis: Principal (3) Acute kidney failure Diagnosis: Principal (4) Hyperglycemia Diagnosis: Principal (5) Mild troponin elevation Diagnosis: Principal (6) Noncompliance Diagnosis: Secondary (7) Alcohol dependence Diagnosis: Secondary Significant Findings Acute right basal ganglia bleed presented as headache. History of hypertension and noncompliance due to cost of copay for medications. Neuro exam is now grossly intact. Weaned off cardene infusion; now on lopressor, lisinopril, and norvasc. Transfer Summary/Subjective Neuro exam grossly intact. ETOH history but aside from some anxiety no nav withdrawal noted. Objective Objective Vital Signs Date Time Temp Pulse Resp B/P (MAP) Pulse Ox O2 Delivery O2 Flow Rate FiO2 07/28/17 06:15 66 137/72 07/28/17 04:00 97.5 18 98 07/27/17 20:19 Nasal Cannula 3.00 Intake and Output 07/28/17 07/28/17 07/29/17 08:00 16:00 00:00 Intake Total 1951 ml Output Total 1000 ml Balance 951 ml Result Diagram: 07/26/17 0147 07/28/[address] Brain shows 1 cm hemorrhage involving left thalamus and posterior limb of internal capsule Objective Remarks GENERAL: Patient is awake and alert SKIN: warm/dry. HEAD: Atraumatic. Normocephalic. EYES: Pupils equal and round. No scleral icterus. No injection or drainage. ENT: No nasal bleeding or discharge. Mucous membranes moist NECK: Trachea midline. Airway widely patent. CARDIOVASCULAR: Regular rate and rhythm. Heart sounds are normal. On Cardene gtt RESPIRATORY: No accessory muscle use. Clear to auscultation. Breath sounds equal bilaterally. No wheezes or crackles. GASTROINTESTINAL: Abdomen soft. Nontender. Nondistended. MUSCULOSKELETAL: No obvious deformities. No edema. NEUROLOGICAL: Awake and alert. No obvious cranial nerve deficits. Hand grasps 5 /5 bilateral. Motor grossly within normal limits. Normal, clear speech. Affect is a little flat. No tremors (? etoh withdrawal) Plan A/P Assessment and Plan NEURO: Acute right thalamic and internal capsule hemorrhage Hypertensive emergency Alcohol dependence - CT of the head 07/25 1 cm bleed right thalamic and posterior limb of internal capsule hemorrhage - Repeat CT head 07/26 stable bleed - Neurosurgery Dr. Barth consulted, conservative management - Cardene infusion to keep blood pressure less than 150/90 - Watch for Alcohol withdrawal, use Ativan when necessary - Supplement and multivitamin thiamine - B12 borderline low, Normal Folate, TSH - HOB elevation to 45 - PT/OT/Speech RESP: - Nasal cannula oxygen - Tobacco cessation counselling CV: Hypertensive emergency History of hypertension with noncompliance Mild troponin elevation - Normal saline IV fluids reduce to 40 ML per hour, 2d echo, monitor serial cardiac enzymes - Cardene infusion to keep blood pressure less than 150/90, use labetalol IV, Hydralazine when necessary - Increase Norvasc to 10 mg daily and metoprolol 50 mg by mouth every 8 hours - Add lisinopril now that renal function improving. GI: - Heart healthy, low Na diet - Colace for bowel regimen : Acute kidney failure - Monitor renal function closely. Creat improving ID: - Monitor for infection. No indication for antibiotics at this time HEME: - Monitor CBC, CMP, coags as needed ENDO: Hyperglycemia -Hemoglobin A1c pending - SSI if needed PROPH: - Bilateral lower extremity SCDs/MACK. Chemical DVT prophylaxis contraindicated due to intracranial hemorrhage - IV Protonix for GI prophylaxis LINES: - Utilize peripheral IVs, central line if needed Overall plan: Continue ICU care due to uncontrolled hypertension and Cardene gtt. Mobilize. Viraj Welch MD Jul 28, 2017 07:47 Objective Vital Signs Date Time Temp Pulse Resp B/P (MAP) Pulse Ox O2 Delivery O2 Flow Rate FiO2 07/29/17 10:00 70 07/29/17 08:00 70 07/29/17 08:00 97.5 71 13 149/78 (101) 99 07/29/17 07:34 98 07/29/17 07:00 95 Room Air 07/29/17 06:00 57 07/29/17 04:00 70 07/29/17 04:00 97.9 70 25 168/98 (121) 95 07/29/17 02:00 80 07/29/17 00:00 66 07/29/17 00:00 98.1 66 21 149/85 (106) 96 07/28/17 23:36 18 07/28/17 22:00 76 07/28/17 20:35 96 07/28/17 20:00 98.4 69 14 155/55 (88) 99 07/28/17 20:00 69 07/28/17 19:00 96 Room Air 07/28/17 18:00 73 07/28/17 16:00 98.0 70 19 96 07/28/17 16:00 70 07/28/17 14:00 62 07/28/17 13:48 95 Nasal Cannula 3.00 07/28/17 12:00 98.7 79 33 96 07/28/17 12:00 79 I/O 07/28/17 07/28/17 07/28/17 07/29/17 07/29/17 07/29/17 07:00 15:00 23:00 07:00 15:00 23:00 Intake Total 2431 ml 280 ml 580 ml Output Total 1500 ml 2 ml 1250 ml Balance 931 ml 278 ml -670 ml Intake Oral 960 ml 280 ml 580 ml IV Total 1471 ml Output Urine Total 1500 ml 1250 ml Stool Total 2 ml # Voids 5 5 4 # Bowel Movements 0 0 Result Diagram: 07/26/17 0147 07/29/17 0636 Imaging Last Impressions Head CT 07/26/17 0600 Signed Impressions: Service Date/Time: Wednesday, July 26, 2017 05:58 - CONCLUSION: Stable head CT with unchanged acute right basal ganglia blood products. Nathan Knowles MD Chest X-Ray 07/25/17 1131 Signed Impressions: Service Date/Time: June 11:48 - CONCLUSION: No acute disease. Edi Bo Jr., MD Renal Ultrasound 07/25/17 0000 Signed Impressions: Service Date/Time: June 13:53 - CONCLUSION: 1. 1 cm nonobstructing right renal stone. 2. Vague area of differing echogenicity involving the medial midpole of the right kidney. I do not see a discrete mass. This area should be followed up. This can be done preferably with an MRI with and without contrast but if the patient's renal status will not tolerate this a short term followup ultrasound can be performed. Edi Bo Jr., MD Procedures None Other Results Laboratory Tests Test 07/25/17 11:30 07/25/17 16:15 07/26/17 01:47 07/27/17 04:42 Prothrombin Time 10.8 SEC Prothromb Time International Ratio 1.0 RATIO Activated Partial Thromboplast Time 27.3 SEC Hemoglobin A1c 5.2 % Vitamin B12 Level 367 PG/ML Folate 12.0 NG/ML Thyroid Stimulating Hormone 3rd Gen 1.170 uIU/ML Nasal Screen MRSA (PCR) MRSA NOT DETECTED White Blood Count 6.1 TH/MM3 Red Blood Count 4.46 MIL/MM3 Hemoglobin 15.0 GM/DL Hematocrit 45.0 % Mean Corpuscular Volume 100.9 FL Mean Corpuscular Hemoglobin 33.6 PG Mean Corpuscular Hemoglobin Concent 33.3 % Red Cell Distribution Width 13.4 % Platelet Count 165 TH/MM3 Mean Platelet Volume 7.6 FL Neutrophils (%) (Auto) 74.3 % Lymphocytes (%) (Auto) 15.1 % Monocytes (%) (Auto) 7.2 % Eosinophils (%) (Auto) 2.7 % Basophils (%) (Auto) 0.7 % Neutrophils # (Auto) 4.5 TH/MM3 Lymphocytes # (Auto) 0.9 TH/MM3 Monocytes # (Auto) 0.4 TH/MM3 Eosinophils # (Auto) 0.2 TH/MM3 Basophils # (Auto) 0.0 TH/MM3 CBC Comment DIFF FINAL Differential Comment Blood Urea Nitrogen 17 MG/DL 16 MG/DL Creatinine 1.62 MG/DL 1.45 MG/DL Random Glucose 106 MG/DL 105 MG/DL Total Protein 7.3 GM/DL 7.1 GM/DL Albumin 3.1 GM/DL 2.9 GM/DL Calcium Level 8.0 MG/DL 8.1 MG/DL Magnesium Level 2.0 MG/DL Alkaline Phosphatase 144 U/L 126 U/L Aspartate Amino Transf (AST/SGOT) 27 U/L 22 U/L Alanine Aminotransferase (ALT/SGPT) 25 U/L 22 U/L Total Bilirubin 0.5 MG/DL 0.5 MG/DL Sodium Level 142 MEQ/L 139 MEQ/L Potassium Level 4.1 MEQ/L 4.0 MEQ/L Chloride Level 107 MEQ/L 105 MEQ/L Carbon Dioxide Level 28.5 MEQ/L 26.2 MEQ/L Total Creatine Kinase 86 U/L Troponin I 0.12 NG/ML Test 07/29/17 06:36 Blood Urea Nitrogen 20 MG/DL Creatinine 1.45 MG/DL Random Glucose 87 MG/DL Calcium Level 8.9 MG/DL Sodium Level 138 MEQ/L Potassium Level 4.0 MEQ/L Chloride Level 106 MEQ/L Carbon Dioxide Level 24.6 MEQ/L Anion Gap 7 MEQ/L Estimat Glomerular Filtration Rate 50 ML/MIN Objective Remarks GENERAL: Patient is awake and alert SKIN: warm/dry. HEAD: Atraumatic. Normocephalic. EYES: Pupils equal and round. No scleral icterus. No injection or drainage. ENT: No nasal bleeding or discharge. Mucous membranes moist NECK: Trachea midline. Airway widely patent. CARDIOVASCULAR: Regular rate and rhythm. Heart sounds are normal. On Cardene gtt RESPIRATORY: No accessory muscle use. Clear to auscultation. Breath sounds equal bilaterally. No wheezes or crackles. GASTROINTESTINAL: Abdomen soft. Nontender. Nondistended. MUSCULOSKELETAL: No obvious deformities. No edema. NEUROLOGICAL: Awake and alert. No obvious cranial nerve deficits. Hand grasps 5 /5 bilateral. Motor grossly within normal limits. Normal, clear speech. Affect is a little flat. No tremors (? etoh withdrawal) Medications and IVs Current Medications Medications (Trade) Dose Ordered Sig/Miladis Route Start Time Stop Time Status Last Admin Sodium Chloride 1,000 ml @ 20 mls/hr Q24H IV 07/25/17 13:28 07/28/17 07:00 (Tylenol) 650 mg Q6H PRN PO 07/25/17 13:30 07/29/17 08:42 (Duoneb Neb) 1 ampule Q2HR NEB PRN INH 07/25/17 13:30 07/27/17 20:17 Miscellaneous Information 1 Q361D XX 07/25/17 13:30 (Chlorhexidine 2% Cloth) 3 pack Taper DAILY@04 TOP 07/26/17 04:00 07/22/18 03:59 07/29/17 04:00 (Chlorhexidine 2% Cloth) 3 pack UNSCH PRN TOP 07/25/17 13:30 (Celsa-Colace) 1 tab BID PO 07/25/17 21:00 07/29/17 08:30 (Milk Of Magnesia Liq) 30 ml Q12H PRN PO 07/25/17 13:30 (Senokot) 17.2 mg Q12H PRN PO 07/25/17 13:30 (Dulcolax Supp) 10 mg DAILY PRN RECTAL 07/25/17 13:30 (Lactulose Liq) 30 ml DAILY PRN PO 07/25/17 13:30 (Trandate Inj) 10 mg Q4H PRN IV PUSH 07/25/17 13:45 07/28/17 22:36 Multivitamins 10 ml/Thiamine HCl 100 mg/Folic Acid 1 mg/Sodium Chloride 511.2 ml @ 125 mls/hr DAILY IV 07/26/17 09:00 07/29/17 09:00 (Ativan Inj) 1 mg Q4H PRN IV PUSH 07/25/17 14:45 07/26/17 17:30 (Ambien) 10 mg HS PRN PO 07/25/17 17:45 07/28/17 23:54 (Tessalon) 100 mg Q8H PRN PO 07/26/17 04:00 07/28/17 18:23 (Norvasc) 10 mg DAILY PO 07/27/17 09:00 07/29/17 08:30 Nicardipine HCl 50 mg/Sodium Chloride 250 ml @ 25 mls/hr TITRATE PRN IV 07/26/17 11:00 07/27/17 21:13 (Ambien) 10 mg HS PRN PO 07/26/17 10:00 (Prinivil) 10 mg Q12HR PO 07/28/17 09:00 07/29/17 08:30 (Lopressor) 75 mg Q12H PO 07/28/17 14:00 07/29/17 02:52 (Pepcid) 20 mg HS PO 07/28/17 21:00 07/28/17 20:06 (Mucinex Er) 600 mg BID PO 07/28/17 21:00 07/29/17 08:29 (Duoneb Neb) 1 ampule Q4HR NEB NEB 07/28/17 20:00 07/29/17 07:31 (Catapres) 0.1 mg Q6H PRN PO 07/28/17 17:00 07/29/17 04:08 A/P Assessment and Plan 1. Acute Thalamic and internal capsule hemorrhage/Hypertensive Emergency/ alcohol dependence - CT of the head 07/25 1 cm bleed right thalamic and posterior limb of internal capsule hemorrhage - Repeat CT head 07/26 stable bleed - Neurosurgery Dr. Barth consulted, conservative management - Cardene infusion to keep blood pressure less than 150/90 - Watch for Alcohol withdrawal, use Ativan when necessary - Supplement and multivitamin thiamine - B12 borderline low, Normal Folate, TSH - HOB elevation to 45 - PT/OT/Speech 2. Tobacco dependence strongly recommended to stop smoking. 3. History of Hypertension with non compliance/Equivocal troponin elevation. - Normal saline IV fluids reduce to 40 ML per hour, 2d echo, monitor serial cardiac enzymes - Add Lisinopril 20 mg more and follow blood pressure in two hours. also given anxiolytic. 4. Acute Kidney Injury I think this is not acute Kidney Injury alone has to get some CKD will need to be followed as outpatient. - Bilateral lower extremity SCDs/MACK. Chemical DVT prophylaxis contraindicated due to intracranial hemorrhage - IV Protonix for GI prophylaxis Discharge Planning Expected later today if blood pressure controlled Devang Ko MD Jul 29, 2017 10:15
[2017-07-29] MEDS ORDERED: LISINOPRIL 20 MG TAB PO ONE (10:45)
[2017-07-29] MEDS ORDERED: LORazepam 0.5 MG TAB PO ONE (10:45)
--- NOTE | 2017-07-29 14:51 | HHI.DS ---
Discharge Summary Admission Date Jul 25, 2017 at 13:30 Discharge Date: Jul 29, 2017 Admitting Diagnosis hypertension intracerebral bleed (1) ICH involving R Basal Ganglia and post limb of internal capsule Diagnosis: Principal (2) Hypertensive emergency ICD Code: I16.1 - Hypertensive emergency Diagnosis: Principal (3) Acute kidney failure ICD Code: N17.9 - Acute kidney failure, unspecified Diagnosis: Principal (4) Hyperglycemia ICD Code: R73.9 - Hyperglycemia, unspecified Diagnosis: Principal (5) Mild troponin elevation Diagnosis: Principal (6) Noncompliance ICD Code: Z91.19 - Patient's noncompliance with other medical treatment and regimen Diagnosis: Secondary (7) Alcohol dependence ICD Code: F10.20 - Alcohol dependence, uncomplicated Diagnosis: Secondary Procedures None Brief History - From Admission Patient is a 61-year-old male with past medical history significant for hypertension, noncompliance to medication, alcohol abuse who presented to the emergency department with complaints of left-sided weakness. He had symptoms from yesterday along with a frontal headache but decided to come only today as the symptoms persisted. Patient had been prescribed to take lisinopril but he had not been taking medication since last 2 years and does not check his blood pressure at home. No history of stroke in the past. Emergency CT of the head showed acute hemorrhage involving left thalamus and posterior limb of the internal capsule. Patient had no significant weakness other than slight left pronator drift. Neurosurgery Dr. Barth was contacted who recommended medical management and aggressive blood pressure control. Critical care medicine was consulted for admission and management. Patient had a BP of 259/151 on admission and was placed on Cardene infusion for hypertensive emergency I evaluated the patient in the emergency department. He is complaining of moderate left frontal headache. Systolic blood pressure remains in 200s and I have ordered to up titrate the Cardene, also added IV labetalol when necessary for SBP more than 160. We will target a blood pressure less than 140/90 due to acute intracranial hemorrhage. Abnormal labs include a creatinine of 2.12 and a glucose of 150, initial troponin was 0.10. EKG showed probably old septal infarct CBC/BMP: 07/26/17 0147 07/29/17 0636 Significant Findings Laboratory Tests Test 07/27/17 04:42 07/28/17 03:45 07/29/17 06:36 Creatinine 1.45 MG/DL (0.60-1.30) 1.40 MG/DL (0.60-1.30) 1.45 MG/DL (0.60-1.30) Albumin 2.9 GM/DL (3.4-5.0) Calcium Level 8.1 MG/DL (8.5-10.1) 8.2 MG/DL (8.5-10.1) Alkaline Phosphatase 126 U/L (45-117) Estimat Glomerular Filtration Rate 50 ML/MIN (>89) 52 ML/MIN (>89) 50 ML/MIN (>89) Random Glucose 109 MG/DL (74-106) Blood Urea Nitrogen 20 MG/DL (7-18) Imaging Last Impressions Head CT 07/26/17 0600 Signed Impressions: Service Date/Time: Wednesday, July 26, 2017 05:58 - CONCLUSION: Stable head CT with unchanged acute right basal ganglia blood products. Nathan Knowles MD Chest X-Ray 07/25/17 1131 Signed Impressions: Service Date/Time: June 11:48 - CONCLUSION: No acute disease. Edi Bo Jr., MD Renal Ultrasound 07/25/17 0000 Signed Impressions: Service Date/Time: June 13:53 - CONCLUSION: 1. 1 cm nonobstructing right renal stone. 2. Vague area of differing echogenicity involving the medial midpole of the right kidney. I do not see a discrete mass. This area should be followed up. This can be done preferably with an MRI with and without contrast but if the patient's renal status will not tolerate this a short term followup ultrasound can be performed. Edi Bo Jr., MD PE at Discharge GENERAL: Patient is awake and alert SKIN: warm/dry. HEAD: Atraumatic. Normocephalic. EYES: Pupils equal and round. No scleral icterus. No injection or drainage. ENT: No nasal bleeding or discharge. Mucous membranes moist NECK: Trachea midline. Airway widely patent. CARDIOVASCULAR: Regular rate and rhythm. Heart sounds are normal. On Cardene gtt RESPIRATORY: No accessory muscle use. Clear to auscultation. Breath sounds equal bilaterally. No wheezes or crackles. GASTROINTESTINAL: Abdomen soft. Nontender. Nondistended. MUSCULOSKELETAL: No obvious deformities. No edema. NEUROLOGICAL: Awake and alert. No obvious cranial nerve deficits. Transfer Summary Neuro exam grossly intact. ETOH history but aside from some anxiety no nav withdrawal noted. Pt update on day of discharge THE PATIENT SIGNED AGAINST MEDICAL ADVISE. Hospital Course Patient admitted due to Hypertension and Intracerebral bleed, found with Acute right basal ganglia bleed presented as headache. History of hypertension and noncompliance due to cost of copay for medications. Neuro exam is now grossly intact. Weaned off Cardene infusion; now on Lopressor, lisinopril, and Norvasc. ETOh History but no signs of withdrawal. CT brain showed 1 cm hemorrhage involving left thalamus and posterior limb of internal capsule. 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 The patient was seen yesterday BY cheese specialist and did not consider the patient for transfer until today. seen in his bedroom with nurse will try to control his blood pressure now and try to discharge him home. he is anxious to go home. Assessment and Plan 1. Acute Thalamic and internal capsule hemorrhage/Hypertensive Emergency/ alcohol dependence - CT of the head 07/25 1 cm bleed right thalamic and posterior limb of internal capsule hemorrhage - Repeat CT head 07/26 stable bleed - Neurosurgery Dr. Barth consulted, conservative management - Cardene infusion to keep blood pressure less than 150/90 - Watch for Alcohol withdrawal, use Ativan when necessary - Supplement and multivitamin thiamine - B12 borderline low, Normal Folate, TSH - HOB elevation to 45 - PT/OT/Speech 2. Tobacco dependence strongly recommended to stop smoking. 3. History of Hypertension with non compliance/Equivocal troponin elevation. - Normal saline IV fluids reduce to 40 ML per hour, 2d echo, monitor serial cardiac enzymes - Add Lisinopril 20 mg more and follow blood pressure in two hours. also given anxiolytic. 4. Acute Kidney Injury I think this is not acute Kidney Injury alone has to get some CKD will need to be followed as outpatient. - Bilateral lower extremity SCDs/MACK. Chemical DVT prophylaxis contraindicated due to intracranial hemorrhage - IV Protonix for GI prophylaxis Discharge Planning THE PATIENT SIGNED AGAINST MEDICAL ADVISE. Pt Condition on Discharge: Fair Discharge Disposition: Discharge Home Discharge Time: <= 30 minutes Devang Ko MD Jul 29, 2017 14:51
[2017-07-29] MEDS ORDERED: CARVEDILOL 6.25 MG TAB PO SCH (21:00)
== END 2017-07-29 13:38 | disposition left against medical advice (07) | DRG 65 ==
LOC: NEPE 11:22 → NEDA 13:30 → N03A 16:05
PROVIDERS: ADMIT Internal Medicine; ATTEND Internal Medicine
DX: I61.8 Other nontraumatic intracerebral hemorrhage (principal); G81.94 Hemiplegia, unspecified affecting left nondominant side; N17.9 Acute kidney failure, unspecified; I16.1 Hypertensive emergency; I10 Essential (primary) hypertension; Z91.14 Patient's other noncompliance with medication regimen; F17.210 Nicotine dependence, cigarettes, uncomplicated; R73.9 Hyperglycemia, unspecified; F10.20 Alcohol dependence, uncomplicated; Z91.120 Patient's intentional underdosing of medication regimen due to financial hardship; J06.9 Acute upper respiratory infection, unspecified
CPT/HCPCS: 70450; 71010; 76775; 80048; 80053; 82550; 82607; 82746; 83036; 83735; 84443; 84484; 85025; 85610; 85730; 87641; 93005; 93306; 94150; 94640; 94664; 96365; C9113; J0360; J2060; J3411; J3420; J7030; J7040; J7050